=== PATIENT | female | born 1995 | race Caucasian/White ===

== ENCOUNTER 2024-11-25 08:09 | Emergency (ER) | payer MEDICAID ==
[~2024-11-25] VITALS: Ht 160 cm; Wt 69.0 kg
[2024-11-25 08:13] VITALS: O2SAT 100
[2024-11-25 08:41] LABS: BASOPHILS % 0.5 % (0.0-2.0); EOSINOPHILS % 1.7 % (0.0-5.0); HEMATOCRIT. 41.7 % (36.0-48.0); HEMOGLOBIN. 14.0 g/dL (12.0-16.0); LYMPHOCYTES % 41.7 % (20.0-50.0); MEAN PLATELET VOLUME 9.8 fl (7.4-10.4); MONOCYTES % 4.8 % (2.0-8.0); NEUTROPHILS % 51.3 % (40.0-76.0); PLATELET 179 x1000/uL (130-400); RED BLOOD CELL COUNT 4.91 mill/uL (4.2-5.4); RED CELL DISTRIBUTION WIDTH 14.0 % (11.6-14.6)
[2024-11-25 08:58] LABS: HCG SCREEN NEGATIVE
[2024-11-25 09:10] LABS: CREATININE 0.6 mg/dL (0.6-1.0)
[2024-11-25 09:11] LABS: UREA NITROGEN BLOOD 8 mg/dL (9-23)
[2024-11-25 12:33] VITALS: BP 164/104; PULSE 91; RESP 18; TEMP 37; O2SAT 99
== END 2024-11-25 12:36 | disposition home or self-care (01) ==
LOC: ER 08:09
DX: N93.8 Other specified abnormal uterine and vaginal bleeding (principal); Z86.018 Personal history of other benign neoplasm
CPT/HCPCS: 36415; 76830; 76856; 80048; 81025; 84703; 85025; 86850; 86900; 99291